=== PATIENT | female | born 1995 | race Caucasian/White ===

== ENCOUNTER 2020-12-17 12:55 | Emergency (ER) | payer OTHER, SELFPAY ==
[2020-12-17 13:08] VITALS: BP 140/79; PULSE 91; RESP 16; TEMP 36.6; O2SAT 99
--- NOTE | 2020-12-17 13:18 | ED.GENADULT ---
HPI - General Adult General Chief complaint: Dental/Oral Stated complaint: jaw pain and swollen Time Seen by Provider: 12/17/20 13:18 Source: patient Mode of arrival: ambulatory Limitations: no limitations History of Present Illness HPI narrative: 25-year-old female patient presents to the [facility] with complaints of swelling to the left cheek for the past 4 days. Patient states she had her Covid shot on Tuesday and states that the swelling started on Tuesday. Denies any trouble breathing, chest pain or shortness of breath. Denies any trouble swallowing. Patient states that she has had issues of a lower back tooth falling out about a year ago. Denies any frequent oral infections that she is aware of. Denies any ear pain. Denies any fevers, body aches or chills. Patient states she has been using ice packs, taking Benadryl as well as ibuprofen for her symptoms. Related Data Allergies Allergy/AdvReac Type Severity Reaction Status Date / Time No Known Allergies Allergy Verified 12/17/20 13:12 Review of Systems Review of Systems: Narrative: CONSTITUTIONAL: Denies fever, chills, or sweats. EYES: Denies visual changes, redness, or discharge. ENT: Denies rhinorrhea, congestion, sore throat, or otalgia. Positive left cheek swelling and pain x4 days CARDIOVASCULAR: Denies chest pain, palpitations, or edema. RESPIRATORY: Denies cough or dyspnea. GASTROINTESTINAL: Denies abdominal pain, nausea, vomiting, or diarrhea. GENITOURINARY: Denies dysuria or hematuria. SKIN: Denies rash or itching. MUSCULOSKELETAL: Denies back pain, joint pain, or myalgia. NEUROLOGIC: Denies headache, numbness, or weakness. PSYCHIATRIC: Denies anxiety or depression. PMFSH Comments At the time of my signature I agree with nursing past medical history, surgical, social, and family history. There is no relevant family history pertinent to the presenting complaint. Exam Narrative: Exam Narrative: GENERAL: Well-appearing, well-nourished, and in no acute distress. HEAD: Normocephalic, atraumatic. EYES: PERRLA and EOMI. ENT: Nares clear, no rhinorrhea or epistaxis. Mucous membranes moist. Posterior pharynx with no erythema, tonsil enlargement, exudates or lesions present. There is some swelling noted to the inner cheek on the left side. There also seems to be area of the gum to the left lower oral cavity behind the left lower molar. No obvious dental abscess noted. There is no obvious abscess palpated in the cheek but does complain a little bit of tenderness and pain to the back gum area. NECK: Supple. No lymphadenopathy CHEST: Clear to auscultation. No respiratory distress. HEART: Regular rate and rhythm. No murmur heard. Normal peripheral pulses. ABDOMEN: Soft, nontender, nondistended, normal active bowel sounds. EXTREMITIES: Normal range of motion. No edema. SKIN: Warm, dry, no rash. NEURO: No focal deficits. Alert and oriented x3. Course Vital Signs Vital signs: Vital Signs Temperature 36.6 C 12/17/20 13:08 Pulse Rate 91 12/17/20 13:08 Respiratory Rate 16 12/17/20 13:08 Blood Pressure 140/79 12/17/20 13:08 Pulse Oximetry 99 12/17/20 13:08 Temperature 36.6 C 12/17/20 13:08 Pulse Rate 91 12/17/20 13:08 Respiratory Rate 16 12/17/20 13:08 Blood Pressure 140/79 12/17/20 13:08 Pulse Oximetry 99 12/17/20 13:08 Vital signs reviewed The patient has been informed that they may have pre-hypertension or Hypertension based on a BP reading in the department. I recommend that the patient call the primary care provider listed on their discharge instructions or a physician of their choice this week to arrange follow up for further evaluation of possible pre-hypertension or Hypertension Medical Decision Making Differential Diagnosis Differential Diagnosis: Differential diagnosis: Dental caries, periodontal disease, avulsed tooth, tooth infections, mandibular infection, Huey's angiana, upper tooth infection, dry socket, gingivitis
== END 2020-12-17 13:30 | disposition home or self-care (01) ==
PROVIDERS: Emergency Provider Nurse Practitioner Family
DX: K05.10 Chronic gingivitis, plaque induced (principal); A49.9 Bacterial infection, unspecified; E28.2 Polycystic ovarian syndrome
CPT/HCPCS: 99213; G0463